=== PATIENT | female | born 1995 | race Caucasian/White ===

== ENCOUNTER → 2021-02-05 | Outpatient (CLI) | payer OTHER ==
[2021-02-07 07:11] LABS: ALPHA-1-ANTITRYPSIN, SERUM 80 mg/dL (100-188); HBSAG SCREEN Negative (Negative); HEP A AB, IGM Negative (Negative); HEP B CORE AB, IGM Negative (Negative); HEP C VIRUS AB <0.1 (0.0-0.9); THYROXINE (T4) 7.5 ug/dL (4.5-12.0); TRIIODOTHYRONINE (T3) 150 ng/dL (71-180)
[2021-02-07 16:20] LABS: MITOCHONDRIAL (M2) ANTIBODY <20.0 Units (0.0-20.0)
== END ==
LOC: US 08:50
PROVIDERS: Internal Medicine Gastroenterology
DX: R94.5 Abnormal results of liver function studies (principal)
CPT/HCPCS: 36415; 76705; 80074; 80076; 82103; 82728; 83540; 83550; 84436; 84443; 84480; 86038

== ENCOUNTER → 2021-04-03 | Outpatient (CLI) | payer OTHER ==
[2021-04-07 16:14] LABS: ALPHA-1-ANTITRYPSIN, SERUM 83 mg/dL (100-188); PHENOTYPE (PI) MZ (.)
== END ==
LOC: LAB 12:07
PROVIDERS: Internal Medicine Gastroenterology
DX: R94.5 Abnormal results of liver function studies (principal)
CPT/HCPCS: 36415; 82103; 82104